=== PATIENT | male | born 1995 | race African-American/Black ===

== ENCOUNTER 2017-05-16 12:54 | Emergency (ER) | payer OTHER ==
[~2017-05-16] VITALS: Ht 175.3 cm; Wt 61.2 kg
[2017-05-16] MEDS ORDERED: MOBIC7.5 MG PO (13:42)
[2017-05-16 14:22] VITALS: BP 113/71
== END 2017-05-16 13:43 | disposition home or self-care (01) ==
LOC: ER 12:54
DX: S09.90XA Unspecified injury of head, initial encounter (principal); R68.84 Jaw pain; F17.210 Nicotine dependence, cigarettes, uncomplicated; Z88.0 Allergy status to penicillin; V49.9XXA Car occupant (driver) (passenger) injured in unspecified traffic accident, initial encounter; Y93.89 Activity, other specified; Y92.89 Other specified places as the place of occurrence of the external cause; Y99.8 Other external cause status

== ENCOUNTER 2019-02-17 20:53 | Emergency (ER) | payer OTHER ==
[~2019-02-17] VITALS: Ht 172.7 cm; Wt 61.2 kg
[~2019-02-17 20:53] MED LIST: BENTYL 20 MG TA20 M1 PO; MOBIC7.5 MG PO; ZOFRAN ODT4 MG PO
[2019-02-17 22:53] VITALS: BP 123/78
== END 2019-02-17 22:54 | disposition home or self-care (01) ==
LOC: ER 20:53
DX: S16.1XXA Strain of muscle, fascia and tendon at neck level, initial encounter (principal); Z88.0 Allergy status to penicillin; V49.09XA Driver injured in collision with other motor vehicles in nontraffic accident, initial encounter; Y93.89 Activity, other specified; Y92.89 Other specified places as the place of occurrence of the external cause; Y99.8 Other external cause status